=== PATIENT | male | born 1955 | race Caucasian/White ===

== ENCOUNTER 2017-02-14 13:51 | Inpatient (IN) | payer OTHER ==
[~2017-02-14] VITALS: Ht 175.3 cm; Wt 115.2 kg
[2017-02-21] MEDS ORDERED: PRAV40TA2 PO (08:27)
[2017-02-21] MEDS ORDERED: AMLO5TAB2 PO (08:27)
[2017-02-21] MEDS ORDERED: LOSA100T2 PO (08:27)
--- NOTE | 2017-03-16 17:45 | MH ---
cc: Terra GAGE M.D. DATE OF ADMISSION 03/21/2017 ADMISSION DIAGNOSIS Osteoarthritic degeneration of the left knee now being admitted for left total knee arthroplasty. HISTORY OF THE PRESENT ILLNESS This pleasant 62-year-old male is being admitted today for a left total knee arthroplasty due to severe painful osteoarthritic degeneration of the left knee. PAST MEDICAL HISTORY Other past history: 1. He underwent a right total knee and did well in 2011. 2. He has a history of arthritis. 3. Hypertension. MEDICATIONS He is currently takes losartan and pravastatin. REVIEW OF SYSTEMS Noncontributory. FAMILY HISTORY Noncontributory. SOCIAL HISTORY He does not smoke. Drinks some alcohol. ALLERGIES HE IS ALLERGIC TO PENICILLIN. PHYSICAL EXAMINATION GENERAL: We find a 62-year-old male well-developed, well-nourished, alert and oriented times three complaining of pain in his left knee. VITAL SIGNS: Blood pressure 128/72, pulse 90 and regular, respirations 18, temperature 97.8, pulse oximetry 97% on room air. HEAD, EYES, EARS, NOSE, AND THROAT: Eyes PERRL, EOMI. Ears, nose, mouth clear. NECK: Supple. LUNGS: Clear. HEART: Regular rate. ABDOMEN: Soft. Positive bowel sounds and nontender. EXTREMITIES: Reveals the left knee to have crepitance on range of motion. He is neurovascularly intact to his toes. IMPRESSION At this time is severe painful osteoarthritic degeneration left knee. PLAN Admission for left total knee arthroplasty today. The patient understands the procedure as well as the risks involved. He understands he is to use Hibiclens scrub and Bactroban preoperatively and is given a prescription for postoperative pain control in the office and for anticoagulation therapy. MD CLAIR Aguirre/KK /5:20 PM /5:30 PM
[2017-03-21 11:59] VITALS: BP 151/85; PULSE 78; RESP 16; TEMP 98.6; O2SAT 97
[2017-03-21] MEDS ORDERED: ASPI81CH CHEW (11:59)
[2017-03-21] MEDS ORDERED: CHLORHEXIDINE GLUCONATE 4% SOLN 120 ML BTL TOPICAL SCH (12:30)
[2017-03-21] MEDS ORDERED: CLINDAMYCIN 900 MG/NS 100 ML IV SCH ×2 (12:30)
[2017-03-21] MEDS ORDERED: POVIDONE IODINE 5% (ANTISEPSIS KIT) 4 APPLICATIONS EACH NARE PRN (12:45)
[2017-03-21] MEDS ORDERED: LACTATED RINGER'S 1000 ML IV PRN (12:45)
[2017-03-21] MEDS ORDERED: INSULIN HUMAN REGULAR 1,000 UNITS/10 ML VIAL SQ PRN (12:45)
[2017-03-21] MEDS ORDERED: CHLORHEXIDINE GLUCONATE 2 % 1 PACK (2 CLOTHS) TOPICAL PRN (12:45)
[2017-03-21] MEDS ORDERED: METOPROLOL TARTRATE 25 MG TAB PO PRN (12:45)
[2017-03-21] MEDS ORDERED: SODIUM CHLORID 0.9% 500 ML IV PRN (12:45)
[2017-03-21] MEDS ORDERED: TRANEXAMIC ACID IV SCH ×2 (13:00→16:00)
[2017-03-21] MEDS ORDERED: SODIUM CHLORIDE 0.9% IV SCH ×2 (13:00→16:00)
[2017-03-21] MEDS ORDERED: EXPAREL PERI-ARTICULAR INJECTION (TOTAL VOL. 120 ML) P-ARTICULR SCH ×2 (13:00)
[2017-03-21] MEDS ORDERED: GENTAMICIN SULFATE 80 MG/2 ML VIAL ONE (13:25)
[2017-03-21] MEDS ORDERED: TEMAZEPAM 15 MG CAP PO PRN (13:30)
[2017-03-21] MEDS ORDERED: ACETAMINOPHEN 325 MG TAB PO PRN (13:30)
[2017-03-21] MEDS ORDERED: NALOXONE HCL 0.4 MG/ML AMP IV PRN (13:30)
[2017-03-21] MEDS ORDERED: ONDANSETRON HCL 4 MG/2 ML VIAL IVP PRN (13:30)
[2017-03-21] MEDS ORDERED: ACETAMINOPHEN/HYDROcodone 325 MG/7.5 MG TAB PO PRN (13:30)
[2017-03-21] MEDS ORDERED: TRANEXAMIC ACID INJ 0 MG in SODIUM CHLORIDE 0.9% INJ 100 ML IV SCH (13:30)
[2017-03-21] MEDS ORDERED: MORPHINE SULFATE 30 MG/30 ML PCA IV SCH (13:30)
[2017-03-21] MEDS ORDERED: Post-op Orders (for Pharmacy) MISC XX ONE (13:30)
[2017-03-21] MEDS ORDERED: SODIUM CHLORIDE 0.9% FLUSH 5 ML FLUSH IVF PRN (13:30)
[2017-03-21] MEDS ORDERED: diphenhydrAMINE HCL 50 MG/ML VIAL IV PRN (13:30)
--- NOTE | 2017-03-21 13:34 | HHI.FF ---
Face to Face Verification Diagnosis: (1) Status post total left knee replacement Physical Therapy Gait training Knee: Total knee, Protocol: Left, Full weight bearing Canvas Knee Splint: When in bed & 2 pillows btw thighs Nursing RN: 3 days/week x 2 weeks Nursing: Dressing changes Dressing Changes: Daily dressing change, 4x4s, Gauze, Paper tape I have seen patient Mynor Saul on 03/21/17. My clinical findings support the need for the requested home health care services because: Limited ability to care for self High risk of falls I certify that my clinical findings support that this patient is homebound because: Unsteady gait/balance Terra Limon MD Mar 21, 2017 13:34
[2017-03-21] MEDS ORDERED: WALKER WHEELS/F1 MIS (13:36)
[2017-03-21] MEDS ORDERED: ADJUSTABLE COMM1 MIS (13:36)
[2017-03-21] MEDS ORDERED: CPMMACHINE (13:36)
[2017-03-21] MEDS ORDERED: ACETAMINOPHEN 1000 MG/100 ML VIAL IV ONE (13:41)
[2017-03-21] MEDS ORDERED: MIDAZOLAM HCL 2 MG/2 ML VIAL ONE ×2 (14:09→17:37)
[2017-03-21] MEDS ORDERED: fentaNYL CITRATE 250 MCG/5 ML AMP ONE ×3 (17:18→17:38)
--- NOTE | 2017-03-21 17:22 | HHI.PR ---
Immediate Post Op Note Procedure Date: Mar 21, 2017 Pre Op Diagnosis: Osteoarthritis left knee Post Op Diagnosis: severe osteoarthritis left knee Surgeon: Terra Limon MD Supervisor Slate Splitting(s): Helena LARA Procedure: Left total knee Arthroplasty Complications: none Specimen(s) removed: none Estimated blood loss: 300cc Anesthesia: General Drains: None IVF (see anthesesia record) Tourniquet time (min at mmHg) 56 minutes Patient to: PACU Patient Condition: Good Implant/Devices: SEE IMPLANT LOG (if applicable) Date/Time of Procedure: SEE SURGICAL CARE RECORD Helena Connolly Mar 21, 2017 17:22
[2017-03-21] MEDS: LACTATED RINGER'S 1000 ML INJ 1,000 ML IV SCH (17:30)
[2017-03-21] MEDS ORDERED: DO NOT ADM ANY ANTICOAGULANT DRUGS PRN (18:00)
--- NOTE | 2017-03-21 18:07 | PD.CONS ---
HPI Service [facility] Hospitalists Consult Requested By Dr. Limon Reason for Consult Medical management Primary Care Physician Devin Macias MD (Paul) Diagnoses: History of Present Illness This is a pleasant 62-year-old white male with significant past medical history of hypertension, osteoarthritis. Patient was admitted for elective surgery. Patient underwent left total knee arthroplasty. Patient is evaluated in the recovery room. Pain is well-controlled. At this time he is working with physical therapy. Hospitalist services are requested for medical management Review of Systems Constitutional: DENIES: Diaphoretic episodes, Fatigue, Fever, Weight gain, Weight loss, Chills, Dizziness, Change in appetite, Night Sweats Eyes: DENIES: Blurred vision, Diplopia, Eye inflammation, Eye pain, Vision loss , Photosensitivity, Double Vision Ears, nose, mouth, throat: DENIES: Tinnitus, Hearing loss, Vertigo, Nasal discharge, Oral lesions, Throat pain, Hoarseness, Ear Pain, Running Nose, Epistaxis, Sinus Pain, Toothache, Odynophagia Respiratory: DENIES: Apneas, Cough, Snoring, Wheezing, Hemoptysis, Sputum production, Shortness of breath Cardiovascular: DENIES: Chest pain, Palpitations, Syncope, Dyspnea on Exertion , PND, Lower Extremity Edema, Orthopnea, Claudication Gastrointestinal: DENIES: Abdominal pain, Black stools, Bloody stools, Constipation, Diarrhea, Nausea, Vomiting, Difficulty Swallowing, Anorexia Genitourinary: DENIES: Sexual dysfunction, Urinary frequency, Urinary incontinence, Urgency, Hematuria, Dysuria, Nocturia, Penile Discharge, Testicular Pain, Testicular Swelling Musculoskeletal: COMPLAINS OF: Joint pain, DENIES: Muscle aches, Stiffness, Joint Swelling, Back pain, Neck pain Integumentary: DENIES: Abnormal pigmentation, Nail changes, Pruritus, Rash Hematologic/lymphatic: DENIES: Bruising, Lymphadenopathy Immunologic/allergic: DENIES: Eczema, Urticaria Neurologic: DENIES: Abnormal gait, Headache, Localized weakness, Paresthesias, Seizures, Speech Problems, Tremor, Poor Balance Psychiatric: DENIES: Anxiety, Confusion, Mood changes, Depression, Hallucinations, Agitation, Suicidal Ideation, Homicidal Ideation, Delusions Past Family Social History Past Medical History Hypertension Hyperlipidemia Osteoarthritis PUD Past Surgical History Right total knee arthroplasty 2012 Peptic ulcer repair Reported Medications Reported Meds & Active Scripts Active Reported Aspirin 81 Mg Chew 81 Mg CHEW DAILY Losartan-Hydrochlorothiazide 100-25 Mg Tab 1 Tab PO DAILY Amlodipine (Amlodipine Besylate) 5 Mg Tab 5 Mg PO DAILY Pravastatin 40 Mg Tab 40 Mg PO DAILY Allergies: Coded Allergies: Penicillin (Unverified Allergy, Severe, PASSED OUT, 02/21/17) Active Ordered Medications Inpatient Medications Acetaminophen (Tylenol) 650 mg Q6H PRN PO temp over 101; Start 03/21/17 at 13: 30 Acetaminophen/ Hydrocodone Bitart ([place] 7.5-325 Mg) 2 tab Q4H PRN PO PAIN SCALE 5 TO 10; Start 03/21/17 at 13:30 Amlodipine Besylate (Norvasc) 5 mg DAILY PO ; Start 03/22/17 at 09:00 Apixaban (Eliquis) 2.5 mg BID PO ; Start 03/21/17 at 21:00 Aspirin (Aspirin Chew) 81 mg DAILY CHEW ; Start 03/22/17 at 09:00 Bacitracin (Bacitracin Oint Packet) 0.9 gm UNSCH X1 PRN TOP WOUND CARE; Start 03/23/17 at 10:15; Stop 03/25/17 at 10:14 Bupivacaine Liposome 20 ml/ Sodium Chloride 120 ml @ 240 mls/hr ONCE P- ARTICULR Last administered on 03/21/17t 15:20; Start 03/21/17 at 13:00; Stop at 19:00 Chlorhexidine Gluconate (Chlorhexidine 2% Cloth) 3 pack INFORMATION ASSISTANT PRN TOPICAL SEE LABEL COMMENTS; Start 03/21/17 at 12:45; Stop 03/24/17 at 12:44 Chlorhexidine Gluconate 1 applic 1 applic ONCE TOPICAL ; Start 03/21/17 at 12:30 ; Stop 03/24/17 at 12:29 Clindamycin Phosphate 900 mg/ Sodium Chloride 106 ml @ 212 mls/hr INFORMATION ASSISTANT IV ; Start 03/21/17 at 12:30; Stop 03/22/17 at 12:29 Clindamycin Phosphate/Sodium Chloride (Cleocin Inj/NS Inj) 106 ml @ 212 mls/hr Q8H IV ; Start 03/21/17 at 13:30; Stop 03/22/17 at 05:59; Status UNV Diphenhydramine HCl (Benadryl Inj) 25 mg Q6H PRN IV ITCHING; Start 03/21/17 at 13:30 Docusate Sodium (Colace) 100 mg BID PO ; Start 03/22/17 at 21:00 Hydrochlorothiazide (Hydrodiuril) 25 mg DAILY PO ; Start 03/22/17 at 09:00 Insulin Human Regular (NovoLIN R INJ) See Protocol Table ... INFORMATION ASSISTANT PRN SQ SEE PROTOCOL TABLE; Start 03/21/17 at 12:45; Stop 03/24/17 at 12:44 IV Flush (NS Flush) 2 ml UNSCH PRN IVF FLUSH AFTER USING IV ACCESS; Start 03/21 at 13:30 IV Flush 2 ml 2 ml BID IVF ; Start 03/21/17 at 21:00 Lactated Ringer's (Lr 1000 ml Inj) 1,000 ml @ 80 mls/hr [id number] IV ; Start at 13:30 Losartan Potassium (Cozaar) 100 mg DAILY PO ; Start 03/22/17 at 09:00 Metoprolol Tartrate (Lopressor) 25 mg INFORMATION ASSISTANT PRN PO SEE LABEL COMMENTS; Start 03/21/17 at 12:45; Stop 03/24/17 at 12:44 Miscellaneous Information ALL NURSING DEPARTME... UNSCH PRN .XX SEE LABEL COMMENTS; Start 03/21/17 at 18:00; Stop 03/22/17 at 17:59 Miscellaneous Information (Post-op Orders (for Pharmacy)) STAT ONCE XX ; Start 03/21/17 at 13:30; Stop 03/21/17 at 13:31; Status UNV Morphine Sulfate (Morphine 1 Mg/ ml NOTEMAN) 30 mg UNSCH IV ; Start 03/21/17 at 13: 30 Multivitamins/ Minerals Therapeutic (Theragran M Tab) 1 tab BID PO ; Start 03/22 at 21:00; Stop 05/21/17 at 20:59 Naloxone HCl (Narcan Inj) 0.4 mg UNSCH PRN IV RESPIRATORY RATE LESS THAN 10; Start 03/21/17 at 13:30 Ondansetron HCl (Zofran Inj) 4 mg Q6H PRN IVP NAUSEA OR VOMITING; Start at 13:30 NOTEMAN Dosage Infused (Pha) 1 Q8HR .XX ; Start 03/21/17 at 14:00 Povidone Iodine (Betadine 5% Antisepsis Kit) 1 applic INFORMATION ASSISTANT PRN EACH NARE SEE LABEL COMMENTS; Start 03/21/17 at 12:45; Stop 03/24/17 at 12:44 Pravastatin Sodium 40 mg 40 mg DAILY PO ; Start 03/22/17 at 09:00 Sodium Chloride (NS 500 ml Inj) 500 ml @ 30 mls/hr [id number] PRN IV SEE LABEL COMMENTS; Start 03/21/17 at 12:45; Stop 03/24/17 at 12:44 Temazepam (Restoril) 15 mg HS PRN PO SLEEP; Start 03/21/17 at 13:30 Tranexamic Acid 1168 mg/Sodium Chloride 111.68 ml @ 200 mls/ hr ONCE IV ; Start 03/21/17 at 16:00; Stop 03/21/17 at 17:00; Status DC Family History Reviewed, noncontributory Social History Nonsmoker, no alcohol abuse, no substance abuse. Physical Exam Vital Signs Vital Signs Date Time Temp Pulse Resp B/P Pulse Ox O2 Delivery O2 Flow Rate FiO2 03/21/17 11:59 98.6 78 16 151/85 97 Physical Exam GENERAL: This is a well-nourished, well-developed patient, in no apparent distress. SKIN: No rashes, ecchymoses or lesions. Cool and dry. HEAD: Atraumatic. Normocephalic. No temporal or scalp tenderness. EYES: Pupils equal round and reactive. Extraocular motions intact. No scleral icterus. No injection or drainage. ENT: Nose without bleeding, purulent drainage or septal hematoma. Throat without erythema, tonsillar hypertrophy or exudate. Uvula midline. Airway patent. NECK: Trachea midline. No JVD or lymphadenopathy. Supple, nontender, no meningeal signs. CARDIOVASCULAR: Regular rate and rhythm without murmurs, gallops, or rubs. RESPIRATORY: Clear to auscultation. Breath sounds equal bilaterally. No wheezes , rales, or rhonchi. GASTROINTESTINAL: Abdomen soft, non-tender, nondistended. No hepato-splenomegaly , or palpable masses. No guarding. MUSCULOSKELETAL: Right knee with bulky dressing intact, right pedal pulse 2+. Able to dorsiflex right foot. NEUROLOGICAL: Awake, alert oriented 3. No focal deficit. Laboratory Laboratory Tests Test 03/21/17 12:15 Blood Type O POSITIVE Antibody Screen NEGATIVE Blood Bank Comment A/P Diagnosis: (1) Status post total left knee replacement (2) Hypertension (3) Osteoarthritis of left knee Assessment and Plan Thank you for this consultation, we will assist with medical management 62-year-old male with history of osteoporosis, status post left total knee arthroplasty Continue postoperative orthopedic care Pain management Bowel regimen Physical therapy Eliquis 2.5 mg by mouth twice a day for DVT prophylaxis Hypertension, well-controlled Continue home medications Continue with Eliquis and SCDs for DVT prophylaxis CBC and BMP in the morning Plan of care has been discussed with the patient, attending and registered nurse. Further management of the patient will be dependent on the hospital course This patient was seen by myself and Dr. Tian, this consultation is written on her behalf Problem Qualifiers (1) Hypertension: Qualified Code: I10 - Essential hypertension (2) Osteoarthritis of left knee: Qualified Code: M17.12 - Osteoarthritis of left knee, unspecified osteoarthritis type Janeth Norris Mar 21, 2017 18:07
--- NOTE | 2017-03-21 18:18 | RADRPT ---
EXAM DATE/TIME: 03/21/2017 17:28 [facility] COMPARISON: No previous studies available for comparison. INDICATIONS : Post left knee arthroplasty MEDICAL HISTORY : Arthritis. SURGICAL HISTORY : None. ENCOUNTER: Initial ACUITY: 1 day PAIN SCORE: Non-responsive. LOCATION: Left Knee FINDINGS: Two view examination of the left knee demonstrates left knee arthroplasty. Post surgical changes. No hardware loosening or fracture. CONCLUSION: Left knee arthroplasty. Bronson Agosto MD on March 21, 2017 at 18:16 Board Certified Radiologist. This report was verified electronically.
[2017-03-21] MEDS: CLINDAMYCIN INJ 900 MG in SODIUM CHLORIDE 0.9% INJ 100 ML IV SCH (20:00)
[2017-03-21] MEDS: APIXABAN 2.5 MG TABLET PO SCH (21:00)
[2017-03-21] MEDS: SODIUM CHLORIDE 0.9% FLUSH 5 ML FLUSH IVF SCH (21:00)
[2017-03-21 22:00] VITALS: BP 113/55; PULSE 78; RESP 16; TEMP 97.9; O2SAT 97
[2017-03-21] MEDS: PCA - TOTAL MG MORPHINE DELIVERED PER SHIFT SCH (22:00)
[2017-03-22] VITALS: BP 137/72; PULSE 92; RESP 16; TEMP 98.6; O2SAT 94
[2017-03-22 00:04] VITALS: O2SAT 97
[2017-03-22 04:00] VITALS: BP 136/70; PULSE 88; RESP 17; TEMP 99.5; O2SAT 95
[2017-03-22] MEDS: CLINDAMYCIN INJ 900 MG in SODIUM CHLORIDE 0.9% INJ 100 ML IV SCH ×2 (04:17→12:25)
[2017-03-22] MEDS: LACTATED RINGER'S 1000 ML INJ 1,000 ML IV SCH ×2 (04:20→14:30)
[2017-03-22] MEDS: PCA - TOTAL MG MORPHINE DELIVERED PER SHIFT SCH (06:00)
[2017-03-22 07:22] LABS: HEMATOCRIT 36.3 % (39.0-51.0); MEAN CELL VOLUME 93.9 FL (80.0-100.0); MEAN CORPUSCULAR HEMOGLOBIN 32.5 PG (27.0-34.0); MEAN CORPUSCULAR HGB CONC 34.6 % (32.0-36.0); PLATELET COUNT 156 TH/MM3 (150-450); RED BLOOD COUNT 3.87 MIL/MM3 (4.50-5.90); RED CELL DISTRIBUTION WIDTH 13.4 % (11.6-17.2); REVIEW FLAG FINAL
--- NOTE | 2017-03-22 07:44 | PD.ORT.PN ---
Subjective Subjective Remarks pt comfortable at present. No complaints. Objective Vitals Vital Signs Date Time Temp Pulse Resp B/P Pulse Ox O2 Delivery O2 Flow Rate FiO2 03/22/17 04:00 99.5 88 17 136/70 95 03/22/17 00:04 97 03/22/17 00:00 98.6 92 16 137/72 94 03/21/17 22:00 97.9 78 16 113/55 97 03/21/17 22:00 18 03/21/17 21:10 78 14 119/64 97 Room Air 03/21/17 20:30 70 14 117/69 97 Room Air 03/21/17 19:30 84 14 135/77 96 Room Air 03/21/17 19:00 14 03/21/17 18:30 77 14 151/85 96 Room Air 03/21/17 18:15 85 14 152/79 96 Room Air 03/21/17 18:00 85 14 163/82 96 Room Air 03/21/17 17:45 81 14 164/77 94 Nasal Cannula 2 03/21/17 17:30 84 14 169/80 95 Nasal Cannula 2 03/21/17 17:21 98.9 89 14 164/83 100 Nasal Cannula 2 03/21/17 11:59 98.6 78 16 151/85 97 I/O 03/21/17 03/21/17 03/21/17 03/22/17 03/22/17 03/22/17 06:59 14:59 22:59 06:59 14:59 22:59 Intake Total 2574 ml 1079 ml Output Total 500 ml 600 ml Balance 2074 ml 479 ml Intake Oral 480 ml IV Total 1074 ml 599 ml Other 1500 ml Output Urine Total 300 ml 600 ml Estimated Blood Loss 200 ml # Bowel Movements 0 Result Diagram: 03/22/17 0608 Imaging Last 24 hours Impressions Knee X-Ray 03/21/17 1330 Signed Impressions: Service Date/Time: Tuesday, March 21, 2017 17:28 - CONCLUSION: Left knee arthroplasty. Bronson Agosto MD Objective Remarks Dressing dry and intact. No calf tenderness. Assessment & Plan Ortho Post Op Day #: 1 Problem List: Assessment and Plan Incentive spirometry, wound care. PT. DC PROFESSOR OF SOCIAL WORK. Terra Limon MD Mar 22, 2017 07:44
[2017-03-22 07:46] LABS: BICARBONATE 28.1 MEQ/L (21.0-32.0); POTASSIUM 3.6 MEQ/L (3.5-5.1)
[2017-03-22 08:00] VITALS: BP_SYST 137; BP_SYST 143; BP_DIAS 67; BP_DIAS 75; PULSE 88; PULSE 93; RESP 16; RESP 18; TEMP 99.2; TEMP 99.8; O2SAT 95; O2SAT 96
[2017-03-22] MEDS: HYDROCHLOROTHIAZIDE 25 MG TAB PO SCH (08:40)
[2017-03-22] MEDS: LOSARTAN 50 MG TAB PO SCH (08:40)
[2017-03-22] MEDS: amLODIPine BESYLATE 5 MG TAB PO SCH (08:40)
[2017-03-22] MEDS: APIXABAN 2.5 MG TABLET PO SCH ×2 (08:40→20:13)
[2017-03-22] MEDS: SODIUM CHLORIDE 0.9% FLUSH 5 ML FLUSH IVF SCH ×2 (08:41→20:13)
[2017-03-22] MEDS: ASPIRIN 81 MG CHEW TAB CHEW SCH (08:41)
[2017-03-22] MEDS: PRAVASTATIN SOD 40 MG TAB PO SCH (08:41)
[2017-03-22] MEDS ORDERED: NON-FORMULARY DRUG (Losartan-Hydrochlorothiazide 1 TAB) PO SCH (09:00)
[2017-03-22] MEDS: ACETAMINOPHEN/HYDROcodone 325 MG/7.5 MG TAB PO PRN ×4 (10:09→23:46)
[2017-03-22 12:00] VITALS: BP 138/63; PULSE 94; RESP 18; TEMP 98.7; O2SAT 95
--- NOTE | 2017-03-22 15:54 | HHI.PR ---
Subjective Remarks Resting in bed eyes closed, but responds to verbal stimuli Right leg and right knee edematous, dressing clean dry and intact Low-grade fever Monitor bowel regimen no BM yet (Nikki Flores) Objective Objective Results - Vital Signs Date Time Temp Pulse Resp B/P Pulse Ox O2 Delivery O2 Flow Rate FiO2 03/22/17 11:09 18 03/22/17 08:00 99.8 88 18 137/67 95 03/22/17 04:00 99.5 88 17 136/70 95 03/22/17 00:04 97 03/22/17 00:00 98.6 92 16 137/72 94 03/21/17 22:00 97.9 78 16 113/55 97 03/21/17 22:00 18 03/21/17 21:10 78 14 119/64 97 Room Air 03/21/17 20:30 70 14 117/69 97 Room Air 03/21/17 19:30 84 14 135/77 96 Room Air 03/21/17 19:00 14 03/21/17 18:30 77 14 151/85 96 Room Air 03/21/17 18:15 85 14 152/79 96 Room Air 03/21/17 18:00 85 14 163/82 96 Room Air 03/21/17 17:45 81 14 164/77 94 Nasal Cannula 2 03/21/17 17:30 84 14 169/80 95 Nasal Cannula 2 03/21/17 17:21 98.9 89 14 164/83 100 Nasal Cannula 2 I/O 03/21/17 03/21/17 03/21/17 03/22/17 03/22/17 03/22/17 07:00 15:00 23:00 07:00 15:00 23:00 Intake Total 2574 ml 1079 ml Output Total 500 ml 600 ml Balance 2074 ml 479 ml Intake Oral 480 ml IV Total 1074 ml 599 ml Other 1500 ml Output Urine Total 300 ml 600 ml Estimated Blood Loss 200 ml # Bowel Movements 0 (Nikki Flores) Result Diagram: 03/22/17 0608 03/22/17 0608 ROS General: Fatigue, Weakness, Other (10 point ROS done positives noted) Neuro/MS: Other (edema left knee and leg) (Nikki Flores) Physical Exam Physical Exam PHYSICAL EXAMINATION GENERAL: This is a well-developed, obese male who appears to be in no acute distress. He is alert and awake, HEAD: Normocephalic without any lesion or mass noted. Facial features appear symmetric. OROPHARYNGEAL: Oropharynx without erythema or edema. NECK: Supple. No nuchal rigidity or lymphadenopathy. Trachea midline without deviation. CARDIAC: Regular rhythm, regular rate, S1 and S2 are heard. Murmur LUNGS: Mild diminished to auscultation bilaterally. No wheezes rales or rhonchi, incentive spirometry at bedside ABDOMEN: Soft, nontender, no organomegaly or masses. Bowel sounds are heard in all four quadrants. No rebound. No guarding. EXTREMITIES: Left leg and knee edema. Status post total knee arthroplasty NEUROLOGICAL: Patient mood and affect appropriate. No focal deficit SKIN:Warm and moist (Nikki Flores) A/P Assessment and Plan (1) Status post total left knee replacement (2) Hypertension (3) Osteoarthritis of left knee Vital signs reviewed, mild fever low-grade 99.8, other trends normal labs reviewed , hemoglobin 12.6 Will check CBC in the morning 62-year-old male with history of osteoporosis, status post left total knee arthroplasty Continue postoperative orthopedic care, pain management physical therapy per orthopedic team Eliquis 2.5 mg by mouth twice a day for DVT prophylaxis Hypertension, well-controlled Continue home medications Continue with Eliquis and SCDs for DVT prophylaxis Discussed with patient Discussed with Dr. itan, seen on her behalf (Nikki Flores) Assessment and Plan patient seen and examined agree with above assessment and plan continue current care labs in am plan of care discussed with patient d/w Nikki LARA (Fannie Tian MD) Nikki Flores Mar 22, 2017 15:54 Fannie Tian MD Mar 22, 2017 19:45
[2017-03-22 20:00] VITALS: BP 151/78; PULSE 94; RESP 18; TEMP 97.2; O2SAT 97
[2017-03-22] MEDS: MULTIVITAMINS/MINERALS THERAPEUTIC TAB PO SCH (20:00)
[2017-03-22] MEDS: DOCUSATE SODIUM 100 MG CAP PO SCH (20:00)
[2017-03-23] VITALS (7 sets, daily range): BP systolic 100–139; BP diastolic 53–76; PULSE 94–105; RESP 16–20; TEMP 97–99.6; O2SAT 94–96
[2017-03-23] MEDS: LACTATED RINGER'S 1000 ML INJ 1,000 ML IV SCH ×2 (03:00→15:30)
[2017-03-23] MEDS: ACETAMINOPHEN/HYDROcodone 325 MG/7.5 MG TAB PO PRN ×6 (03:20→23:58)
[2017-03-23 06:58] LABS: HEMATOCRIT 33.8 % (39.0-51.0); MEAN CELL VOLUME 95.3 FL (80.0-100.0); MEAN CORPUSCULAR HEMOGLOBIN 32.3 PG (27.0-34.0); MEAN CORPUSCULAR HGB CONC 33.9 % (32.0-36.0); PLATELET COUNT 147 TH/MM3 (150-450); RED BLOOD COUNT 3.55 MIL/MM3 (4.50-5.90); RED CELL DISTRIBUTION WIDTH 13.1 % (11.6-17.2); REVIEW FLAG FINAL
--- NOTE | 2017-03-23 07:47 | PD.ORT.PN ---
Subjective Subjective Remarks pt comfortable at present. No complaints except block is still partially working. Objective Vitals Vital Signs Date Time Temp Pulse Resp B/P Pulse Ox O2 Delivery O2 Flow Rate FiO2 03/23/17 04:30 97.0 94 18 118/70 96 03/23/17 00:30 98.0 100 18 120/74 96 03/22/17 20:00 97.2 94 18 151/78 97 03/22/17 18:50 Room Air 03/22/17 16:21 18 03/22/17 12:00 98.7 94 18 138/63 95 03/22/17 08:00 99.8 88 18 137/67 95 03/22/17 08:00 99.2 93 16 143/75 96 I/O 03/22/17 03/22/17 03/22/17 03/23/17 03/23/17 03/23/17 07:00 15:00 23:00 07:00 15:00 23:00 Intake Total 1079 ml 240 ml 240 ml Output Total 600 ml 300 ml 600 ml Balance 479 ml -60 ml -360 ml Intake Oral 480 ml 240 ml 240 ml IV Total 599 ml Output Urine Total 600 ml 300 ml 600 ml # Bowel Movements 0 0 0 Result Diagram: 03/23/17 0610 03/22/17 0608 Imaging Last 24 hours Impressions Knee X-Ray 03/21/17 1330 Signed Impressions: Service Date/Time: Tuesday, March 21, 2017 17:28 - CONCLUSION: Left knee arthroplasty. Bronson Agosto MD Objective Remarks Dressing dry and intact. No calf tenderness. Assessment & Plan Ortho Post Op Day #: 2 Problem List: Assessment and Plan Incentive spirometry, wound care. PT. Home tomorrow. Terra Limon MD Mar 23, 2017 07:47
[2017-03-23] MEDS: DOCUSATE SODIUM 100 MG CAP PO SCH ×2 (08:22→19:54)
[2017-03-23] MEDS: MULTIVITAMINS/MINERALS THERAPEUTIC TAB PO SCH ×2 (08:22→19:54)
[2017-03-23] MEDS: HYDROCHLOROTHIAZIDE 25 MG TAB PO SCH (08:23)
[2017-03-23] MEDS: amLODIPine BESYLATE 5 MG TAB PO SCH (08:23)
[2017-03-23] MEDS: PRAVASTATIN SOD 40 MG TAB PO SCH (08:23)
[2017-03-23] MEDS: ASPIRIN 81 MG CHEW TAB CHEW SCH (08:23)
[2017-03-23] MEDS: APIXABAN 2.5 MG TABLET PO SCH ×2 (08:23→19:54)
[2017-03-23] MEDS: LOSARTAN 50 MG TAB PO SCH (08:23)
[2017-03-23] MEDS: SODIUM CHLORIDE 0.9% FLUSH 5 ML FLUSH IVF SCH ×2 (09:43→19:56)
[2017-03-23] MEDS ORDERED: BACITRACIN OINT 0.9 GM PKT TOP PRN (10:15)
--- NOTE | 2017-03-23 11:58 | HHI.PR ---
Subjective Remarks up in chair afebrile denies any cough encourage to elevate lt leg (Nikki Flores) Objective Objective Results - Vital Signs Date Time Temp Pulse Resp B/P Pulse Ox O2 Delivery O2 Flow Rate FiO2 03/23/17 08:30 102 139/76 03/23/17 08:00 98.3 95 16 130/74 96 03/23/17 04:30 97.0 94 18 118/70 96 03/23/17 00:30 98.0 100 18 120/74 96 03/22/17 20:00 97.2 94 18 151/78 97 03/22/17 18:50 Room Air 03/22/17 16:21 18 03/22/17 12:00 98.7 94 18 138/63 95 I/O 03/22/17 03/22/17 03/22/17 03/23/17 03/23/17 03/23/17 07:00 15:00 23:00 07:00 15:00 23:00 Intake Total 1079 ml 240 ml 240 ml Output Total 600 ml 300 ml 600 ml 200 ml Balance 479 ml -60 ml -360 ml -200 ml Intake Oral 480 ml 240 ml 240 ml IV Total 599 ml Output Urine Total 600 ml 300 ml 600 ml 200 ml # Bowel Movements 0 0 0 (Nikki Flores) Result Diagram: 03/23/17 0610 03/22/17 0608 Medications and IVs Last Impressions Knee X-Ray 03/21/17 1330 Signed Impressions: Service Date/Time: Tuesday, March 21, 2017 17:28 - CONCLUSION: Left knee arthroplasty. Bronson Agosto MD (Nikki Flores) ROS General: Other (10 point ROS done, ) Neuro/MS: Other (edema lt leg, dressing CDI) (Nikki Flores) Physical Exam Physical Exam PHYSICAL EXAMINATION GENERAL: This is a well-developed, well-nourished male who appears to be in no acute distress. He is alert and awake, HEAD: Normocephalic without any lesion or mass noted. Facial features appear symmetric. OROPHARYNGEAL: Oropharynx without erythema or edema. NECK: Supple. No nuchal rigidity or lymphadenopathy. Trachea midline without deviation. CARDIAC: Regular rhythm, regular rate, S1 and S2 are heard LUNGS: Clear to auscultation bilaterally. no cough or wheezing ABDOMEN: Soft, nontender, no organomegaly or masses. Bowel sounds are heard in all four quadrants. No rebound. No guarding. EXTREMITIES: 2-3+ edema. Pulses equal bilateral. NEUROLOGICAL: Patient mood and affect appropriate. No focal deficit SKIN:Warm and moist (Nikki Flores) A/P Assessment and Plan (1) Status post total left knee replacement (2) Hypertension (3) Osteoarthritis of left knee Vital signs reviewed,pulse 95-102 with activity, afebrile labs reviewed, anemia, stable 11.5, no leukocytosis 62-year-old male with history of osteoporosis, status post left total knee arthroplasty Continue postoperative orthopedic care, pain management physical therapy per orthopedic team encouraged patient to elevate leg, 2-3+edema post op, Eliquis 2.5 mg by mouth twice a day for DVT prophylaxis No cough, SOB, encouraged to turn, cough, deep breath Hypertension, well-controlled Continue home medications Continue with Eliquis and SCDs for DVT prophylaxis Discussed with patient Discussed with Dr. tian, seen on her behalf D/W nurse DC planning for am per ortho and if medicallly stable home with rehab home (Nikki Flores) Assessment and Plan patient seen and examined pain better controlled passing gas no BM yet no fever medically stable continue current care anticipate discharge to home in am plan of care discussed with patient no family at bedside d/w Nkiki LARA (Fannie Tian MD) Nikki Flores Mar 23, 2017 11:58 Fannie Tian MD Mar 23, 2017 13:18
--- NOTE | 2017-03-23 13:39 | MP ---
cc: Terra LIMON DATE OF SURGERY 03/21/2017 PREOPERATIVE DIAGNOSIS Osteoarthritic degeneration left knee. POSTOPERATIVE DIAGNOSIS Osteoarthritic degeneration left knee. SURGERY PERFORMED Left total knee arthroplasty using Consensus components size 5 femur, size 3 tibia, size 2 patella with a size 16 standard insert and two batches of DePuy cement. SURGEON Dr. Limon PCTS MARCO Lenz ANESTHESIA General intubation and block PROCEDURE After successful induction of anesthesia, the patient is placed on the operating room table in the supine position. The knee is prepped and draped in the usual manner. A tourniquet is inflated at the upper thigh and set to 300 mmHg pressure after exsanguination of the lower extremity. A longitudinal incision is made extending from 3 inches proximal to the superior pole of the patella, across the patella in longitudinal fashion, and down past the insertion of the tibial tubercle into the proximal tibia. The incision is carried down through subcutaneous tissue along the medial aspect of the patella and retinaculum, down through the capsule to expose the knee joint. The patella and patellar tendon are freed up enough to allow the patella to be inverted and retracted off the lateral side of the knee joint. The knee joint is left exposed. Small osteophytes are removed. All soft tissue is removed to allow proper position of the femoral and tibial cutting jig guide. The first femoral jig is then inserted along the distal end of the femur after first measuring to decide whether this is a small, medium, or large component. The notch is then drilled and the tibial cutting guide inserted into the femoral cutting guide, along with the ankle brace to allow for proper measurement of the tibial cutting surface that needed to be resected. Pins are inserted into the tibial cutting jig and femoral cutting jig to hold them in place. An oscillating saw is then used to resect the surface of the tibia. The surface of the tibia is then completely removed using sharp and blunt dissection. The anterior and posterior cuts of the femur are then made as well using an oscillating saw through the cutting guide. All guides are then removed and the varus/valgus angulation cutting guide applied to the femur for proper measurement of the proper amount of valgus. The anterior cutting guide for the femur is then inserted at the anterior femoral cuts made. Next, the first block trial is inserted into the femur to allow for proper condyle drill holes to be made which are then made followed by removal of the bone between the condyles using an oscillating saw as well as the bone removed at the most posterior surface of the condyle. After this, this guide is removed and the chamfer cuts made using the chamfer cutting guide from both anterior and posterior. Next, the femoral trial is then inserted, the tibial surface reflected anterior to expose the tibial surface and a tibial stem guide is inserted after first measuring for a standard, standard plus, large, or large plus surface to be used. After the stem is impacted the trial tibial surface is applied followed by the trial meniscal components. After full range of motion is found with the appropriate length meniscal components varying the patella is prepared by resecting the posterior aspect of the patella using an oscillating saw, inserting a trial. The trial is then removed and the cruciate cutting guide applied using the bur to cut the cruciate cuts. After cruciate cuts are made all trials are removed. The wound is irrigated copiously with antibiotic solution and Water-Pik and the actual components inserted into place using Consensus components size 5 femur, size 3 tibia, size 2 patella with a size 16 standard insert and two batches of Herotainmentuy cement. After the cement has hardened and the components are found to have full range of motion with no instability, the tourniquet is deflated, total tourniquet time being 58 minutes at 300 mmHg pressure. The wound again is irrigated copiously with antibiotic solution, meticulous hemostasis achieved with the help of 5 cc of Deonna and 120 cc of Exparel used around the knee joint for extra pain control. The deep fascia approximated with a running #2 quill, subcutaneous tissue approximated using interrupted and running 2-0 and 3-0 Monocryl suture. Steri-Strips, sterile dressing and knee immobilizer. No drain utilized. Estimated blood loss 200 cc. The sponge suture counts were correct. MARCO Lenz was present during the entire procedure to include patient positioning and the procedure. The medical necessity of the nurse practitioner as cook's assistant was indicated in this case due to the surgical complexity of the case itself. During the surgical case, the nursing surgical services director was working the back table while my surgical manager MARCO was directly assisting me. The patient tolerated the procedure well and left the operating in satisfactory condition. J. MD CLAIR Tatum/JOSE LUIS /5:00 PM /1:24 PM
[2017-03-24] VITALS (7 sets, daily range): BP systolic 105–131; BP diastolic 60–72; PULSE 87–95; RESP 18; TEMP 97.6–99; O2SAT 92–97
[2017-03-24] MEDS: LACTATED RINGER'S 1000 ML INJ 1,000 ML IV SCH ×2 (03:19→12:28)
[2017-03-24] MEDS: ACETAMINOPHEN/HYDROcodone 325 MG/7.5 MG TAB PO PRN ×5 (04:18→19:54)
[2017-03-24] MEDS: amLODIPine BESYLATE 5 MG TAB PO SCH (08:27)
[2017-03-24] MEDS: LOSARTAN 50 MG TAB PO SCH (08:27)
[2017-03-24] MEDS: HYDROCHLOROTHIAZIDE 25 MG TAB PO SCH (08:27)
[2017-03-24] MEDS: APIXABAN 2.5 MG TABLET PO SCH ×2 (08:27→19:51)
[2017-03-24] MEDS: MULTIVITAMINS/MINERALS THERAPEUTIC TAB PO SCH ×2 (08:27→19:51)
[2017-03-24] MEDS: DOCUSATE SODIUM 100 MG CAP PO SCH ×2 (08:27→19:51)
[2017-03-24] MEDS: PRAVASTATIN SOD 40 MG TAB PO SCH (08:28)
[2017-03-24] MEDS: MAGNESIUM HYDROXIDE SUSP 30 ML CUP PO SCH ×2 (08:28→19:51)
[2017-03-24] MEDS: ASPIRIN 81 MG CHEW TAB CHEW SCH (08:28)
[2017-03-24] MEDS: SENNOSIDES 8.6 MG TAB PO SCH ×2 (08:28→19:51)
--- NOTE | 2017-03-24 08:30 | HHI.DS ---
Discharge Summary Admission Date Mar 21, 2017 at 09:51 Discharge Date: Mar 24, 2017 Admitting Diagnosis Osteoarthritic degeneration left knee Diagnosis: (1) Status post total left knee replacement Diagnosis: Principal Brief History This is a 62 year old male patient CBC/BMP: 03/23/17 0610 03/22/17 0608 Significant Findings Laboratory Tests Test 03/22/17 03/23/17 06:08 06:10 Red Blood Count 3.87 MIL/MM3 3.55 MIL/MM3 (4.50-5.90) (4.50-5.90) Hemoglobin 12.6 GM/DL 11.5 GM/DL (13.0-17.0) (13.0-17.0) Hematocrit 36.3 % 33.8 % (39.0-51.0) (39.0-51.0) Random Glucose 112 MG/DL (74-106) Calcium Level 7.9 MG/DL (8.5-10.1) Platelet Count 147 TH/MM3 (150-450) PE at Discharge Dressing dry and intact. No calf tenderness. Hospital Course Patient was admitted on March 21, 2017 at which time he underwent a left total knee arthroplasty. He received a course of prophylactic IV antibiotics and within 23 hours started on anticoagulation therapy. 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 He tolerated by mouth pain meds well and physical therapy out of bed with daily wound care. He remained afebrile vital signs stable and continue to progress with physical therapy. He was discharged on the third postoperative day in good condition with instructions for home healthcare and continuation of physical therapy and follow-up in the office for recheck. Pt Condition on Discharge: Good Discharge Disposition: Disch w/ Home Health Serv Discharge Instructions Diet Instructions: As Tolerated, No Restrictions Activities You Can Perform: Weight Bearing as Carlos Eduardo, Shower Only-No Bath Activities to Avoid: Bathing, Driving Terra Limon MD Mar 24, 2017 08:30
[2017-03-24] MEDS: SODIUM CHLORIDE 0.9% FLUSH 5 ML FLUSH IVF SCH ×2 (08:31→19:54)
--- NOTE | 2017-03-24 08:31 | PD.ORT.PN ---
Subjective Subjective Remarks pt comfortable at present. No complaints except block is still partially working but less than yesterday Objective Vitals Vital Signs Date Time Temp Pulse Resp B/P Pulse Ox O2 Delivery O2 Flow Rate FiO2 03/24/17 04:00 98.8 93 18 119/67 96 03/24/17 00:45 97.6 93 18 130/68 96 03/23/17 20:00 97.2 95 18 132/60 96 03/23/17 16:53 99.6 97 20 100/63 94 03/23/17 12:00 98.5 105 20 112/53 95 I/O 03/23/17 03/23/17 03/23/17 03/24/17 03/24/17 03/24/17 07:00 15:00 23:00 07:00 15:00 23:00 Intake Total 240 ml 480 ml 240 ml 120 ml Output Total 600 ml 200 ml 200 ml 525 ml Balance -360 ml 280 ml 40 ml -405 ml Intake Oral 240 ml 480 ml 240 ml 120 ml Output Urine Total 600 ml 200 ml 200 ml 525 ml # Voids 4 # Bowel Movements 0 0 0 0 Result Diagram: 03/23/17 0610 03/22/17 0608 Imaging Last 24 hours Impressions Knee X-Ray 03/21/17 1330 Signed Impressions: Service Date/Time: Tuesday, March 21, 2017 17:28 - CONCLUSION: Left knee arthroplasty. Bronson Agosto MD Objective Remarks Dressing dry and intact. No calf tenderness. Assessment & Plan Ortho Post Op Day #: 3 Problem List: (1) Status post total left knee replacement Assessment and Plan Continuation of physical therapy and wound care today home later today with home healthcare and physical therapy. Terra Limon MD Mar 24, 2017 08:31
--- NOTE | 2017-03-24 11:33 | HHI.PR ---
Subjective Remarks up in chair, and ambulated and trevino this morning Low-grade fever 99 6 which has decreased to 9 8.8 this a.m. denies any cough encourage to elevate lt leg, possible mild cellulitis, edema 2+ postop, elevated while in bed, warm to touch Objective Objective Results - Vital Signs Date Time Temp Pulse Resp B/P Pulse Ox O2 Delivery O2 Flow Rate FiO2 03/24/17 10:10 96 03/24/17 08:00 99.0 95 18 131/60 95 03/24/17 04:00 98.8 93 18 119/67 96 03/24/17 00:45 97.6 93 18 130/68 96 03/23/17 20:00 97.2 95 18 132/60 96 03/23/17 16:53 99.6 97 20 100/63 94 03/23/17 12:00 98.5 105 20 112/53 95 I/O 03/23/17 03/23/17 03/23/17 03/24/17 03/24/17 03/24/17 07:00 15:00 23:00 07:00 15:00 23:00 Intake Total 240 ml 480 ml 240 ml 120 ml Output Total 600 ml 200 ml 200 ml 525 ml Balance -360 ml 280 ml 40 ml -405 ml Intake Oral 240 ml 480 ml 240 ml 120 ml Output Urine Total 600 ml 200 ml 200 ml 525 ml # Voids 4 # Bowel Movements 0 0 0 0 Result Diagram: 03/23/17 0610 03/22/17 0608 ROS General: Other (10 point ROS done positives noted) Neuro/MS: Other (2+ edema postop left leg, warm to touch) Physical Exam Physical Exam PHYSICAL EXAMINATION GENERAL: This is a well-developed, obese male who appears to be in no acute distress. He is alert and awake, HEAD: Normocephalic. Facial features appear symmetric. OROPHARYNGEAL: Oropharynx clear NECK: Supple. Trachea midline without deviation. CARDIAC: Regular rhythm, regular rate, S1 and S2 are heard. LUNGS: Clear to auscultation bilaterally. No cough noted, encourage patient to turn cough and deep breathe especially when up in chair ABDOMEN: Soft, nontender, no organomegaly or masses. Bowel sounds are heard in all four quadrants. Passing gas EXTREMITIES: Left extremity 2+ edema, warm to touch but no erythema NEUROLOGICAL: Patient mood and affect appropriate. No focal deficit SKIN:Warm and moist A/P Assessment and Plan (1) Status post total left knee replacement (2) Hypertension (3) Osteoarthritis of left knee Vital signs reviewed, noted fever of 99.6 over the last 24 hours now 98.8 labs reviewed, no leukocytosis, no acute blood loss noted since surgery, will obtain UA Left total knee replacement Continue postoperative orthopedic care, pain management physical therapy per orthopedic team encouraged patient to elevate leg, 2+edema post op, warm to touch but no erythema noted, Eliquis 2.5 mg by mouth twice a day for DVT prophylaxis Up in chair and ambulated today most of the morning, orthopedic okay from discharge from his standpoint later today, No cough, SOB, encouraged to turn, cough, deep breath Hypertension, well-controlled Continue home medications Continue with Eliquis and SCDs for DVT prophylaxis Discussed with patient Discussed with Dr. hood, seen on her behalf D/W nurse FAM planning probable later on this afternoon home with rehab home, home health Nikki Flores Mar 24, 2017 11:33
[2017-03-24 13:14] LABS: BLOOD, URINE NEG (NEG); GLUCOSE,URINE NEG (NEG); KETONE, URINE NEG (NEG); MUCUS URINE FEW /lpf (OCC); NITRITE,URINE NEG (NEG); PH, URINE 6.5 (5.0-8.5); SQUAMOUS EPITHELIAL CELL URINE <1 /hpf (0-5); URINE COLOR YELLOW (YELLW/STRAW)
[2017-03-24 13:20] LABS: COMMENT (UR) CULT NOT INDICATED; CULTURE IF INDICATED CULT NOT INDICATED
[2017-03-25] MEDS: ACETAMINOPHEN/HYDROcodone 325 MG/7.5 MG TAB PO PRN ×3 (00:15→09:34)
[2017-03-25 00:30] VITALS: BP 135/67; PULSE 90; RESP 18; TEMP 98.9; O2SAT 96
[2017-03-25] MEDS: LACTATED RINGER'S 1000 ML INJ 1,000 ML IV SCH (03:48)
[2017-03-25 04:20] VITALS: BP 129/70; PULSE 92; RESP 18; TEMP 98.5; O2SAT 96
[2017-03-25 08:00] VITALS: BP 139/75; PULSE 93; RESP 20; TEMP 98; O2SAT 100
--- NOTE | 2017-03-25 08:43 | PD.ORT.PN ---
Subjective Subjective Remarks pt comfortable at present. No complaints, block almost completely gone. Objective Vitals Vital Signs Date Time Temp Pulse Resp B/P Pulse Ox O2 Delivery O2 Flow Rate FiO2 03/25/17 04:20 98.5 92 18 129/70 96 03/25/17 00:30 98.9 90 18 135/67 96 03/24/17 20:25 98.8 91 18 121/72 97 03/24/17 16:00 98.2 87 18 105/62 92 03/24/17 12:00 98.5 88 18 117/64 93 03/24/17 10:10 96 I/O 03/24/17 03/24/17 03/24/17 03/25/17 03/25/17 03/25/17 07:00 15:00 23:00 07:00 15:00 23:00 Intake Total 120 ml 360 ml 240 ml 240 ml Output Total 525 ml 620 ml 320 ml 400 ml Balance -405 ml -260 ml -80 ml -160 ml Intake Oral 120 ml 360 ml 240 ml 240 ml Output Urine Total 525 ml 620 ml 320 ml 400 ml # Voids 1 0 1 # Bowel Movements 0 0 1 Result Diagram: 03/23/17 0610 03/22/17 0608 Imaging Last 24 hours Impressions Knee X-Ray 03/21/17 1330 Signed Impressions: Service Date/Time: Tuesday, March 21, 2017 17:28 - CONCLUSION: Left knee arthroplasty. Bronson Agosto MD Objective Remarks Dressing dry and intact. No calf tenderness. Sitting up in chair. Assessment & Plan Ortho Post Op Day #: 4 Problem List: (1) Status post total left knee replacement Assessment and Plan Continuation of physical therapy and wound care today home later today with home healthcare and physical therapy. Terra Limon MD Mar 25, 2017 08:43
[2017-03-25] MEDS: SODIUM CHLORIDE 0.9% FLUSH 5 ML FLUSH IVF SCH (09:00)
[2017-03-25] MEDS: SENNOSIDES 8.6 MG TAB PO SCH (09:00)
[2017-03-25] MEDS: MAGNESIUM HYDROXIDE SUSP 30 ML CUP PO SCH (09:00)
[2017-03-25] MEDS: DOCUSATE SODIUM 100 MG CAP PO SCH (09:00)
[2017-03-25] MEDS: MULTIVITAMINS/MINERALS THERAPEUTIC TAB PO SCH (09:30)
[2017-03-25] MEDS: ASPIRIN 81 MG CHEW TAB CHEW SCH (09:30)
[2017-03-25] MEDS: HYDROCHLOROTHIAZIDE 25 MG TAB PO SCH (09:31)
[2017-03-25] MEDS: amLODIPine BESYLATE 5 MG TAB PO SCH (09:31)
[2017-03-25] MEDS: PRAVASTATIN SOD 40 MG TAB PO SCH (09:31)
[2017-03-25] MEDS: APIXABAN 2.5 MG TABLET PO SCH (09:32)
[2017-03-25] MEDS: LOSARTAN 50 MG TAB PO SCH (09:33)
--- NOTE | 2017-03-25 12:02 | HHI.PR ---
Subjective Remarks up in chair, anxious to get home Afebrile Alert oriented in room Objective Objective Results - Vital Signs Date Time Temp Pulse Resp B/P Pulse Ox O2 Delivery O2 Flow Rate FiO2 03/25/17 10:40 16 03/25/17 08:00 98.0 93 20 139/75 100 03/25/17 04:20 98.5 92 18 129/70 96 03/25/17 00:30 98.9 90 18 135/67 96 03/24/17 20:25 98.8 91 18 121/72 97 03/24/17 16:00 98.2 87 18 105/62 92 I/O 03/24/17 03/24/17 03/24/17 03/25/17 03/25/17 03/25/17 07:00 15:00 23:00 07:00 15:00 23:00 Intake Total 120 ml 360 ml 240 ml 240 ml Output Total 525 ml 620 ml 320 ml 400 ml Balance -405 ml -260 ml -80 ml -160 ml Intake Oral 120 ml 360 ml 240 ml 240 ml Output Urine Total 525 ml 620 ml 320 ml 400 ml # Voids 1 0 1 # Bowel Movements 0 0 1 Result Diagram: 03/23/17 0610 03/22/17 0608 ROS General: Other (10 point ROS done positives noted) Physical Exam Physical Exam PHYSICAL EXAMINATION GENERAL: This is a well-developed, well-nourished male who appears to be in no acute distress. He is alert and awake, HEAD: Normocephalic without any lesion or mass noted. Facial features appear symmetric. OROPHARYNGEAL: Oropharynx without erythema or edema. NECK: Supple. No nuchal rigidity or lymphadenopathy. Trachea midline without deviation. CARDIAC: Regular rhythm, regular rate, S1 and S2 are heard. LUNGS: Clear to auscultation bilaterally. ABDOMEN: Soft, nontender, no organomegaly or masses. Bowel sounds are heard in all four quadrants. No rebound. No guarding. EXTREMITIES: 1+ left leg edema. Pulses equal bilateral. NEUROLOGICAL: Patient mood and affect appropriate. No focal deficit SKIN:Warm and moist A/P Assessment and Plan (1) Status post total left knee replacement (2) Hypertension (3) Osteoarthritis of left knee Vital signs reviewed, afebrile labs reviewed, UA okay Left total knee replacement Continue postoperative orthopedic care, pain management physical therapy per orthopedic team encouraged patient to elevate leg, left leg edema improved continue to elevate after discharge Eliquis 2.5 mg by mouth twice a day for DVT prophylaxis No cough, SOB, encouraged to turn, cough, deep breath Hypertension, well-controlled Continue home medications Continue with Eliquis and SCDs for DVT prophylaxis Discussed with patient Discussed with Dr. hood, seen on her behalf D/W nurse FAM planning today home with rehab home, home health Nikki Flores Mar 25, 2017 12:02
[2017-03-25 12:05] VITALS: BP 116/65; PULSE 98; RESP 20; TEMP 98.2; O2SAT 100
== END 2017-03-25 13:02 | disposition home health service (06) | DRG 470 ==
LOC: HSDI 03-21 09:51 → N06B 03-21 21:19
PROVIDERS: ADMIT Surgery; ATTEND Surgery
PROC: 3E0T3CZ (ICD-10-PCS; 2017-03-21)
PROC: 0SRD0J9 Replacement of Left Knee Joint with Synthetic Substitute, Cemented, Open Approach (ICD-10-PCS; principal; 2017-03-21 14:25)
DX: M17.12 Unilateral primary osteoarthritis, left knee (principal); I10 Essential (primary) hypertension; E78.5 Hyperlipidemia, unspecified; Z87.11 Personal history of peptic ulcer disease; Z96.651 Presence of right artificial knee joint; M81.0 Age-related osteoporosis without current pathological fracture; D64.9 Anemia, unspecified; R50.9 Fever, unspecified; R60.0 Localized edema; Z88.0 Allergy status to penicillin
CPT/HCPCS: 73560; 80048; 81001; 85027; 86850; 86900; 86901; 94150; C9290; J0131; J1580; J2250; J2270; J3010; J7120; L1830

== ENCOUNTER → 2017-02-21 | Outpatient (CLI) | payer OTHER ==
[~2017-02-21] MED LIST: AMLO5TAB2 PO; FURO40TA OR; HYZA100T6 PO; LOSA100T2 PO; POTA-243 PO; PRAV40TA2; PRAV40TA2 PO; RIVA10 PO; TESTIM TOP; TRAM50TA PO
[2017-02-21 08:43] LABS: BLOOD, URINE NEG (NEG); GLUCOSE,URINE NEG (NEG); KETONE, URINE NEG (NEG); NITRITE,URINE NEG (NEG); SQUAMOUS EPITHELIAL CELL URINE <1 /hpf (0-5); URINE COLOR LIGHT-YELLOW (YELLW/STRAW)
[2017-02-21 08:46] LABS: AUTOMATED NEUTROPHIL # 4.4 TH/MM3 (1.8-7.7); BASOPHIL # 0.1 TH/MM3 (0-0.2); BASOPHIL % 0.9 % (0.0-2.0); EOSINOPHIL # 0.2 TH/MM3 (0-0.4); EOSINOPHIL % 3.1 % (0.0-4.0); HEMATOCRIT 43.9 % (39.0-51.0); HEMO FLAGS DIFF FINAL; LYMPH % 26.5 % (9.0-44.0); LYMPHOCYTE # 2.1 TH/MM3 (1.0-4.8); MEAN CELL VOLUME 92.6 FL (80.0-100.0); MEAN CORPUSCULAR HEMOGLOBIN 32.2 PG (27.0-34.0); MEAN CORPUSCULAR HGB CONC 34.8 % (32.0-36.0); MONO % 13.1 % (0.0-8.0); NEUT % 56.4 % (16.0-70.0); PLATELET COUNT 192 TH/MM3 (150-450); RED BLOOD COUNT 4.74 MIL/MM3 (4.50-5.90); RED CELL DISTRIBUTION WIDTH 13.2 % (11.6-17.2); WHITE BLOOD COUNT 7.8 TH/MM3 (4.0-11.0)
[2017-02-21 08:53] LABS: APTT (PATIENT) 25.7 SEC (24.3-30.1); INTERNATIONAL NORMALIZED RATIO 0.9 RATIO; PROTHROMBIN TIME - PATIENT 10.1 SEC (9.8-11.6)
[2017-02-21 08:56] LABS: COMMENT (UR) CULT NOT INDICATED; CULTURE IF INDICATED CULT NOT INDICATED
[2017-02-21 09:05] LABS: ANION GAP 6 MEQ/L (5-15); AST (GOT) 20 U/L (15-37); BICARBONATE 29.3 MEQ/L (21.0-32.0); BLOOD UREA NITROGEN 12 MG/DL (7-18); CHLORIDE 103 MEQ/L (98-107); GLOMERULAR FILTRATION RATE 99 ML/MIN (>89); GLUCOSE,FASTING 108 MG/DL (74-99); POTASSIUM 4.1 MEQ/L (3.5-5.1); SODIUM (NA) 138 MEQ/L (136-145)
[2017-02-21 09:06] LABS: ALT (GPT) 23 U/L (12-78)
[2017-02-21 09:09] LABS: ALKALINE PHOSPHATASE 72 U/L (45-117); TOTAL BILIRUBIN ADULT 0.4 MG/DL (0.2-1.0)
--- NOTE | 2017-02-22 07:41 | EKG ---
Date Performed: 02/21/2017 Time Performed: 08:19:39 PTAGE: 62 years EKG: Sinus rhythm WITH FREQUENT VENTRICULAR PREMATURE COMPLEXES LEFT VENTRICULAR HYPERTROPHY AND ST-T CHANGE ABNORMAL ECG PREVIOUS TRACING : 06/16/2012 09.50 DOCTOR: Hemalatha Rivera Interpretating Date/Time 02/22/2017 07:40:21
== END ==
LOC: CPRE 07:49
PROVIDERS: ATTEND Surgery
DX: Z01.812 Encounter for preprocedural laboratory examination (principal); Z01.810 Encounter for preprocedural cardiovascular examination; R94.31 Abnormal electrocardiogram [ECG] [EKG]
CPT/HCPCS: 36415; 80053; 81001; 85025; 85610; 85730; 93005